=== PATIENT | male | born 1975 | race Caucasian/White ===

== ENCOUNTER 2016-08-12 19:48 | Emergency (ER) | payer OTHER ==
[~2016-08-12] VITALS: Ht 168.9 cm; Wt 84.6 kg
[~2016-08-12 19:48] MED LIST: LEXA20TA PO
[2016-08-12 19:58] VITALS: BP 128/92; PULSE 130; RESP 16; TEMP 99.5; O2SAT 95
[2016-08-12 20:30] VITALS: BP 125/71; PULSE 115; RESP 18; O2SAT 95
[2016-08-12] MEDS ORDERED: ACETAMINOPHEN 325 MG TAB PO ONE (20:30)
[2016-08-12] MEDS ORDERED: SODIUM CHLOR 0.9% 1000 ML INJ 1,000 ML IV ONE ×2 (20:30→21:15)
[2016-08-12] MEDS ORDERED: ONDANSETRON HCL 4 MG/2 ML VIAL IV PUSH ONE (20:30)
--- NOTE | 2016-08-12 20:32 | PD ---
HPI Chief Complaint: Abdominal Pain Time Seen by Provider: 20:26 Travel History International Travel<30 days: No Contact w/Intl Traveler<30days: No Traveled to known affect area: No History of Present Illness HPI This 40-year-old male is complaining of being sick for the last 3 days. He's been nauseated. He thinks she's had some fever. He is having occasional abdominal pain. Other members of the family have had a similar syndrome. PFSH Past Medical History Anxiety: Yes Depression: Yes High Cholesterol: Yes Diabetes: No Diminished Hearing: No Hypertension: Yes Psychiatric: Yes (ANXIETY DISORDER, AUTISM, OCD) Immunizations Current: No Past Surgical History Eye Surgery: Yes (To correct "lazy eye") Social History Alcohol Use: No Tobacco Use: No Substance Use: No Allergies-Medications (Allergen,Severity, Reaction): Coded Allergies: No Known Allergies (Verified , 08/12/16) Reported Meds & Prescriptions Reported Meds & Active Scripts Active Reported Lexapro (Escitalopram Oxalate) 20 Mg Tab 10 Mg PO DAILY Review of Systems General / Constitutional: No: Fever, Chills Eyes: No: Diploplia HENT: No: Headaches Cardiovascular: No: Chest Pain or Discomfort Respiratory: No: Cough, Shortness of Breath Gastrointestinal: Positive: Vomiting, No: Diarrhea Genitourinary: No: Urgency, Frequency Musculoskeletal: No: Myalgias, Limited ROM Physical Exam Narrative GENERAL: Well-developed male SKIN: Focused skin assessment warm/dry. HEAD: Atraumatic. Normocephalic. EYES: Pupils equal and round. No scleral icterus. No injection or drainage. ENT: No nasal bleeding or discharge. Mucous membranes pink and moist. NECK: Trachea midline. No JVD. CARDIOVASCULAR: Regular rate and rhythm. No murmur appreciated. RESPIRATORY: No accessory muscle use. Clear to auscultation. Breath sounds equal bilaterally. GASTROINTESTINAL: Abdomen soft, non-tender, nondistended. Hepatic and splenic margins not palpable. MUSCULOSKELETAL: No obvious deformities. No clubbing. No cyanosis. No edema. NEUROLOGICAL: Awake and alert. No obvious cranial nerve deficits. Motor grossly within normal limits. He has a slight speech impediment PSYCHIATRIC: Appropriate mood and affect; insight and judgment normal. Data Data Last Documented VS Vital Signs Date Time Temp Pulse Resp B/P Pulse Ox O2 Delivery O2 Flow Rate FiO2 08/12/16 22:00 98.5 106 18 144/82 99 Room Air Orders Complete Blood Count With Diff (08/12/16 20:30) Basic Metabolic Panel (Bmp) (08/12/16 20:30) Sodium Chlor 0.9% 1000 Ml Inj (Ns 1000 M (08/12/16 20:30) Ondansetron Inj (Zofran Inj) (08/12/16 20:30) Acetaminophen (Tylenol) (08/12/16 20:30) Sodium Chlor 0.9% 1000 Ml Inj (Ns 1000 M (08/12/16 21:15) Labs Laboratory Tests Test 08/12/16 20:35 White Blood Count 12.4 TH/MM3 Red Blood Count 6.06 MIL/MM3 Hemoglobin 16.9 GM/DL Hematocrit 51.8 % Mean Corpuscular Volume 85.4 FL Mean Corpuscular Hemoglobin 27.9 PG Mean Corpuscular Hemoglobin 32.7 % Concent Red Cell Distribution Width 12.3 % Platelet Count 260 TH/MM3 Mean Platelet Volume 8.7 FL Neutrophils (%) (Auto) 90.0 % Lymphocytes (%) (Auto) 6.9 % Monocytes (%) (Auto) 1.9 % Eosinophils (%) (Auto) 0.1 % Basophils (%) (Auto) 1.1 % Neutrophils # (Auto) 11.2 TH/MM3 Lymphocytes # (Auto) 0.9 TH/MM3 Monocytes # (Auto) 0.2 TH/MM3 Eosinophils # (Auto) 0.0 TH/MM3 Basophils # (Auto) 0.1 TH/MM3 CBC Comment DIFF FINAL Differential Comment Sodium Level 138 MEQ/L Potassium Level 4.1 MEQ/L Chloride Level 103 MEQ/L Carbon Dioxide Level 23.5 MEQ/L Anion Gap 12 MEQ/L Blood Urea Nitrogen 18 MG/DL Creatinine 1.30 MG/DL Estimat Glomerular Filtration 61 ML/MIN Rate Random Glucose 114 MG/DL Calcium Level 8.8 MG/DL [facility] Medical Decision Making Medical Screen Exam Complete: Yes Emergency Medical Condition: Yes Medical Record Reviewed: Yes Differential Diagnosis Differential includes acute gastritis, viral syndrome, dehydration Narrative Course Patient was given IV fluids and Zofran with good response. He feels better after some IV fluids. Repeat examination shows the abdomen to remain soft and nontender. He'll be released with prescription for Zofran Diagnosis Primary Impression: Acute gastritis Qualified Code: K29.00 - Acute gastritis without hemorrhage, unspecified gastritis type Scripts Ondansetron Odt (Zofran Odt)4 Mg Tab4 Mg SL Q6HR PRN (Nausea/Vomiting) #10 TAB Ref 0 Prov:Saleem Queen MD 08/12/16 Disposition: 01 DISCHARGE HOME Condition: Stable Saleem Queen MD Aug 12, 2016 20:32
[2016-08-12 20:47] LABS: AUTOMATED NEUTROPHIL # 11.2 TH/MM3 (1.8-7.7); BASOPHIL # 0.1 TH/MM3 (0-0.2); BASOPHIL % 1.1 % (0.0-2.0); EOSINOPHIL % 0.1 % (0.0-4.0); HEMATOCRIT 51.8 % (39.0-51.0); LYMPH % 6.9 % (9.0-44.0); LYMPHOCYTE # 0.9 TH/MM3 (1.0-4.8); MEAN CELL VOLUME 85.4 FL (80.0-100.0); MEAN CORPUSCULAR HEMOGLOBIN 27.9 PG (27.0-34.0); MEAN CORPUSCULAR HGB CONC 32.7 % (32.0-36.0); MONO % 1.9 % (0.0-8.0); PLATELET COUNT 260 TH/MM3 (150-450); RED BLOOD COUNT 6.06 MIL/MM3 (4.50-5.90); RED CELL DISTRIBUTION WIDTH 12.3 % (11.6-17.2); WHITE BLOOD COUNT 12.4 TH/MM3 (4.0-11.0)
[2016-08-12 20:49] LABS: HEMO FLAGS DIFF FINAL
[2016-08-12 20:58] LABS: POTASSIUM 4.1 MEQ/L (3.5-5.1)
[2016-08-12 21:00] VITALS: BP 136/89; PULSE 106; RESP 18; O2SAT 99
[2016-08-12 21:01] LABS: BICARBONATE 23.5 MEQ/L (21.0-32.0)
[2016-08-12 22:00] VITALS: BP 144/82; PULSE 106; RESP 18; TEMP 98.5; O2SAT 99
[2016-08-12] MEDS ORDERED: ZOFR4TAB3 SL (22:56)
[2016-08-12 23:00] VITALS: BP 130/85; PULSE 110; RESP 18; TEMP 99.3; O2SAT 97
== END 2016-08-12 23:26 | disposition home or self-care (01) ==
LOC: PHED 19:48
DX: K29.00 Acute gastritis without bleeding (principal); I10 Essential (primary) hypertension; E78.00 Pure hypercholesterolemia, unspecified; Z86.59 Personal history of other mental and behavioral disorders
CPT/HCPCS: 80048; 85025; 96361; 96374; 99284; J2405; J7030

== ENCOUNTER 2016-12-16 10:32 | Emergency (ER) | payer OTHER, MEDICAID ==
[~2016-12-16] VITALS: Ht 167.6 cm; Wt 82.5 kg
[~2016-12-16 10:32] MED LIST changes: -LEXA20TA PO; +ZOFR4TAB3 SL
[2016-12-16 10:34] VITALS: BP 140/96; PULSE 102; RESP 20; TEMP 99.2; O2SAT 98
[2016-12-16] MEDS ORDERED: SODIUM CHLORIDE 0.9% FLUSH 10 ML FLUSH IV FLUSH PRN (11:15)
[2016-12-16 11:24] LABS: AUTOMATED NEUTROPHIL # 9.3 TH/MM3 (1.8-7.7); BASOPHIL % 0.3 % (0.0-2.0); EOSINOPHIL # 0.1 TH/MM3 (0-0.4); EOSINOPHIL % 0.4 % (0.0-4.0); HEMATOCRIT 45.3 % (39.0-51.0); LYMPH % 23.7 % (9.0-44.0); LYMPHOCYTE # 3.1 TH/MM3 (1.0-4.8); MEAN CELL VOLUME 83.5 FL (80.0-100.0); MONO % 4.4 % (0.0-8.0); NEUT % 71.2 % (16.0-70.0); PLATELET COUNT 259 TH/MM3 (150-450); RED BLOOD COUNT 5.43 MIL/MM3 (4.50-5.90)
--- NOTE | 2016-12-16 11:30 | RADRPT ---
EXAM DATE/TIME: 12/16/2016 11:20 [place] COMPARISON: No previous studies available for comparison. INDICATIONS : Abdominal pain since last night. MEDICAL HISTORY : Hypertension. Hypercholesterolemia. SURGICAL HISTORY : None. ENCOUNTER: Initial ACUITY: 1 day PAIN SCORE: 8/10 LOCATION: below umbilicus FINDINGS: Examination of the abdomen demonstrates a normal bowel gas pattern. No free air is identified. No o rganomegaly is evident. There is a moderate amount of stool throughout the colon. Osseous structures are intact. There is a calcified phlebolith deep in the right pelvis. CONCLUSION: No evidence of obstruction. Sandeep Linares MD on December 16, 2016 at 11:28 Board Certified Radiologist. This report was verified electronically.
[2016-12-16 11:36] LABS: HEMO FLAGS AUTO DIFF
[2016-12-16 12:20] LABS: PLATELET ESTIMATE SMEAR NORMAL (NORMAL); PLATELET MORPHOLOGY NORMAL (NORMAL); SCAN/DIFF AUTO DIFF CONFIRMED
--- NOTE | 2016-12-16 12:33 | PD ---
HPI Chief Complaint: Abdominal Pain Time Seen by Provider: 10:50 Travel History International Travel<30 days: No Contact w/Intl Traveler<30days: No Traveled to known affect area: No History of Present Illness HPI 41-year-old male history of autism arrives with mother due to complaints of constipation for about one month which has become much worse over the past day or 2. Positive flatus. Positive small hard stool today. No vomiting. Patient drank half a bottle of a bowel cleansing solution 3 days prior. He states he's worried that he might have an intra-abdominal mass. PFSH Past Medical History Anxiety: Yes Depression: Yes High Cholesterol: Yes Diabetes: No Diminished Hearing: No Hypertension: Yes Psychiatric: Yes (ANXIETY DISORDER, AUTISM, OCD) Immunizations Current: No Past Surgical History Eye Surgery: Yes (To correct "lazy eye") Social History Alcohol Use: No Tobacco Use: No Substance Use: No Allergies-Medications (Allergen,Severity, Reaction): Coded Allergies: No Known Allergies (Verified , 12/16/16) Reported Meds & Prescriptions Reported Meds & Active Scripts Active Review of Systems Except as stated in HPI: all other systems reviewed are Neg Physical Exam Narrative GENERAL: 41-year-old male pleasant well-nourished well-developed answers questions appropriately SKIN: Warm and dry. HEAD: Atraumatic. Normocephalic. EYES: Pupils equal and round. No scleral icterus. No injection or drainage. ENT: No nasal bleeding or discharge. Mucous membranes pink and moist. NECK: Trachea midline. No JVD. CARDIOVASCULAR: Tachycardia. Regular rhythm. RESPIRATORY: No accessory muscle use. Clear to auscultation. Breath sounds equal bilaterally. GASTROINTESTINAL: Abdomen soft, non-tender, nondistended. Hepatic and splenic margins not palpable. MUSCULOSKELETAL: Extremities without clubbing, cyanosis, or edema. No obvious deformities. NEUROLOGICAL: Awake and alert. No obvious cranial nerve deficits. Motor grossly within normal limits. Five out of 5 muscle strength in the arms and legs. Normal speech. PSYCHIATRIC: Appropriate mood and affect; insight and judgment normal. Data Data Last Documented VS Vital Signs Date Time Temp Pulse Resp B/P Pulse Ox O2 Delivery O2 Flow Rate FiO2 12/16/16 12:45 97 Room Air 12/16/16 10:34 99.2 102 20 140/96 Vital signs reviewed Orders Complete Blood Count With Diff (12/16/16 11:03) Comprehensive Metabolic Panel (12/16/16 11:03) Iv Access Insert/Monitor (12/16/16 11:03) Oximetry (12/16/16 11:03) Sodium Chloride 0.9% Flush (Ns Flush) (12/16/16 11:15) Abdomen, Single View (12/16/16 ) Labs Laboratory Tests Test 12/16/16 12/16/16 11:07 11:45 White Blood Count 13.0 TH/MM3 Red Blood Count 5.43 MIL/MM3 Hemoglobin 16.3 GM/DL Hematocrit 45.3 % Mean Corpuscular Volume 83.5 FL Mean Corpuscular Hemoglobin 30.0 PG Mean Corpuscular Hemoglobin 36.0 % Concent Red Cell Distribution Width 13.0 % Platelet Count 259 TH/MM3 Mean Platelet Volume 8.5 FL Neutrophils (%) (Auto) 71.2 % Lymphocytes (%) (Auto) 23.7 % Monocytes (%) (Auto) 4.4 % Eosinophils (%) (Auto) 0.4 % Basophils (%) (Auto) 0.3 % Neutrophils # (Auto) 9.3 TH/MM3 Lymphocytes # (Auto) 3.1 TH/MM3 Monocytes # (Auto) 0.6 TH/MM3 Eosinophils # (Auto) 0.1 TH/MM3 Basophils # (Auto) 0.0 TH/MM3 CBC Comment AUTO DIFF Differential Comment AUTO DIFF CONFIRMED Platelet Estimate NORMAL Platelet Morphology Comment NORMAL Red Cell Morphology Comment NORMAL Sodium Level 137 MEQ/L Potassium Level 4.0 MEQ/L Chloride Level 103 MEQ/L Carbon Dioxide Level 24.1 MEQ/L Anion Gap 10 MEQ/L Blood Urea Nitrogen 14 MG/DL Creatinine 0.97 MG/DL Estimat Glomerular Filtration 86 ML/MIN Rate Random Glucose 112 MG/DL Calcium Level 9.3 MG/DL Total Bilirubin 0.6 MG/DL Aspartate Amino Transf 17 U/L (AST/SGOT) Alanine Aminotransferase 33 U/L (ALT/SGPT) Alkaline Phosphatase 68 U/L Total Protein 7.9 GM/DL Albumin 4.0 GM/DL [facility] Medical Decision Making Medical Screen Exam Complete: Yes Emergency Medical Condition: Yes Medical Record Reviewed: Yes Differential Diagnosis Gastritis, pancreatitis, appendicitis, acute cholecystitis, ascending cholangitis, AAA, perforated viscous, mesenteric ischemia, hepatitis, cystitis, hydronephrosis/hydroureter/nephroureter calculus, mesenteric adenitis, biliary colic Narrative Course CBC & BMP Diagram 12/16/16 11:07 12/16/16 11:45 LFTs normal Last Impressions Abdomen X-Ray 12/16/16 0000 Signed Impressions: Service Date/Time: December 11:20 - CONCLUSION: No evidence of obstruction. Sandeep Linares MD The patient is resting comfortably and feels better, is alert and in no distress. The patients results and examination findings were discussed. The repeat examination is unremarkable and benign. The history, exam, diagnostic testing, and current condition do not suggest any significant pathology to warrant further testing, continued ED treatment, admission, or surgical evaluation at this point. The vital signs have been stable. The patient does not have uncontrollable pain, intractable vomiting, or other significant symptoms. The patient's condition is stable and appropriate for discharge. The patient will pursue further outpatient evaluation with a primary care physician or other designated or consulting physician as indicated in the discharge instructions. The patient expressed understanding and was agreeable with this plan. Diagnosis Primary Impression: Constipation Qualified Code: K59.00 - Constipation, unspecified constipation type Referrals: Primary Care Physician 2 days Additional Instructions: If you develop a fever or if you develop worsening abdominal pain or if the abdominal pain becomes severe please return to the ER right away. Please be especially aware of the need to return to the ER over the next 8 hours or so should any of these symptoms become noticeable. Follow-up with Dr. Posada for an MRI of the abdomen to characterize the liver lesion seen on CT in December 2015. Med/Other Pt SpecificInfo: No Change to Meds Disposition: 01 DISCHARGE HOME Condition: Stable Emil Watts MD Dec 16, 2016 12:33
[2016-12-16 12:45] VITALS: O2SAT 97
[2016-12-16 13:21] LABS: ANION GAP 10 MEQ/L (5-15); AST (GOT) 17 U/L (15-37); BICARBONATE 24.1 MEQ/L (21.0-32.0); BLOOD UREA NITROGEN 14 MG/DL (7-18); CHLORIDE 103 MEQ/L (98-107); GLOMERULAR FILTRATION RATE 86 ML/MIN (>89); SODIUM (NA) 137 MEQ/L (136-145)
[2016-12-16 13:22] LABS: ALT (GPT) 33 U/L (12-78)
[2016-12-16 13:24] LABS: ALKALINE PHOSPHATASE 68 U/L (45-117); TOTAL BILIRUBIN ADULT 0.6 MG/DL (0.2-1.0)
== END 2016-12-16 14:20 | disposition home or self-care (01) ==
LOC: NEPE 10:32
DX: K59.00 Constipation, unspecified (principal)
CPT/HCPCS: 74000; 80053; 85025; 99284